=== PATIENT | female | born 1965 | race Caucasian/White ===

== ENCOUNTER 2017-05-24 07:04 | Day surgery (SDC) | payer OTHER, BC ==
[~2017-05-24 07:04] MED LIST: Lactated Ringers 1,000 ML IV SCH; Lidocaine 1%/Sod Bicarbonate in NS 8.4% 1 ML Syringe IV PRN; Sodium Chloride 0.9% 10 ML Syringe FLUSH PRN
[2017-05-24] MEDS ORDERED: Propofol 200 MG/20 ML SDV ONE (07:15)
[2017-05-24] MEDS ORDERED: fentaNYL 100 MCG/2 ML SDV ONE (07:15)
[2017-05-24] MEDS ORDERED: Lidocaine 1% 4 ML ONE (07:15)
--- NOTE | 2017-05-24 07:23 | PCM.PREANE ---
Preanesthetic Assessment - Anesthesia/Transfusion/Family Hx Anesthesia History: Prior Anesthesia Reaction Type of Anesthesia Reaction: Excessive Nausea/Vomiting Family History of Anesthesia Reaction: No Transfusion History: No Prior Transfusion(s) Intubation History: Unknown - Review of Systems General: No Symptoms Pulmonary: No Symptoms (quit smoking in 1988/ history of asthma) Cardiovascular: No Symptoms (History of HTN), Dyspnea on Exertion Gastrointestinal: No Symptoms (GERD) Neurological: No Symptoms (History of lymphedema of left leg) Other: Reports: Easy Bruising, Diabetes (am blood sugar at 07:89=796), Depression, Anxiety - Physical Assessment NPO Status Date: 05/23/17 NPO Status Time: 23:00 Pulse: 115 O2 Sat by Pulse Oximetry: 94 Respiratory Rate: 16 Blood Pressure: 135/99 Temperature: 36.1 C Height: 1.57 m Weight: 111 kg ASA Class: 2 Mental Status: Alert & Oriented x3 Airway Class: Mallampati = 2 Dentition: Reports: Normal Dentition, Caries Thyro-Mental Finger Breadths: 3 Mouth Opening Finger Breadths: 3 Lungs: Clear to Auscultation, Normal Respiratory Effort Cardiovascular: Regular Rate, Regular Rhythm, No Murmurs - Allergies Allergies/Adverse Reactions: Allergies Allergy/AdvReac Type Severity Reaction Status Date / Time codeine Allergy Vomiting Verified 05/23/17 12:31 - Anesthesia Plan Pre-Op Medication Ordered: None - Acknowledgements Anesthesia Type Planned: MAC Pt an Appropriate Candidate for the Planned Anesthesia: Yes Alternatives and Risks of Anesthesia Discussed w Pt/Guardian: Yes Pt/Guardian Understands and Agrees with Anesthesia Plan: Yes PreAnesthesia Questionnaire HEENT History: Reports: Impaired Vision Cardiovascular History: Reports: High Cholesterol, Hypertension Respiratory History: Reports: Asthma, Other (See Below) Other Respiratory History: cough Gastrointestinal History: Reports: None Genitourinary History: Reports: Urinary Incontinence, Other (See Below) Other Genitourinary History: microcytosis 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 Musculoskeletal History: Reports: Other (See Below) Other Musculoskeletal History: foot pain Neurological History: Reports: None Psychiatric History: Reports: Anxiety, Depression Endocrine/Metabolic History: Reports: Obesity/BMI 30+, Vitamin D Deficiency Hematologic History: Reports: Anemia, Iron Deficiency Immunologic History: Reports: None Oncologic (Cancer) History: Reports: None Dermatologic History: Reports: Other (See Below) Other Dermatologic History: left leg lymphadema - Past Surgical History Head Surgeries/Procedures: Reports: None HEENT Surgical History: Reports: Other (See Below) Other HEENT Surgeries/Procedures: throat polyp removal Cardiovascular Surgical History: Reports: None GI Surgical History: Reports: Cholecystectomy, Hernia Repair/Other Female Surgical History: Reports: Section Male Surgical History: Reports: None Neurological Surgical History: Reports: None Musculoskeletal Surgical History: Reports: Other (See Below) Other Musculoskeletal Surgeries/Procedures:: Left ACL and MCL repair Oncologic Surgical History: Reports: None - SUBSTANCE USE Smoking Status *Q: Former Smoker Recreational Drug Use History: No - HOME MEDS Home Medications: Home Meds Albuterol Sulfate [Proair Hfa] 1 - 2 puff INH Q4HR PRN 05/23/17 [History] Albuterol [IJD: Albuterol] 1 dose INH QID PRN 05/23/17 [History] Ascorbate Calcium [Vitamin C] 500 mg PO DAILY 05/23/17 [History] Calcium Carb/Magnesium Hydrox [Rolaids Chewable Tablet] 1 tab PO ASDIRECTED PRN 05/23/17 [History] Calcium Lactate 300 mg PO DAILY 05/23/17 [History] Cholecalciferol (Vitamin D3) [Vitamin D3] 5,000 units PO DAILY 05/23/17 [History ] Ferrous Sulfate [Iron] 325 mg PO DAILY 05/23/17 [History] Fluticasone/Salmeterol [Advair 250-50 Diskus] 1 puff INH BID 05/23/17 [History] Lactobacillus Combination No.4 [Probiotic] 1 cap PO DAILY 05/23/17 [History] Lisinopril [Lisinopril] 10 mg PO DAILY 05/23/17 [History] Magnesium Calcium Niacin 1 tab PO DAILY 05/23/17 [History] Naproxen Sodium [Aleve] 440 mg PO BID PRN 05/23/17 [History] Omeprazole [Omeprazole] 20 mg PO DAILY 05/23/17 [History] Venlafaxine HCl [Venlafaxine ER] 37.5 mg PO DAILY 05/23/17 [History] atorvaSTATin [Lipitor] 10 mg PO DAILY 05/23/17 [History] metFORMIN HCl [Metformin HCl ER] 500 mg PO DAILY 05/23/17 [History] - CURRENT (IN HOUSE) MEDS Current Meds: Current Medications Lactated Ringer's (Ringers, Lactated) 1,000 mls @ 125 mls/hr IV ASDIRECTED CHAZ Stop: 05/24/17 18:00 Lidocaine/Sodium Bicarbonate (Buffered Lidocaine 1% In Ns 8.4%) 0.25 ml IV ONETIME PRN PRN Reason: Prior to IV Start Stop: 05/24/17 18:00 Sodium Chloride (Saline Flush) 10 ml FLUSH ASDIRECTED PRN PRN Reason: Keep Vein Open Stop: 05/24/17 18:00 Discontinued Medications Fentanyl (Sublimaze) Confirm Administered Dose 100 mcg .ROUTE .STK-MED ONE Stop: 05/24/17 07:16 Lidocaine HCl (Xylocaine-Mpf 1%) Confirm Administered Dose 4 mls @ as directed .ROUTE .STK-MED ONE Stop: 05/24/17 07:16 Propofol (Diprivan 20 Ml) Confirm Administered Dose 400 mg .ROUTE .STK-MED ONE Stop: 05/24/17 07:16
--- NOTE | 2017-05-24 07:56 | PCM.HP ---
H&P History of Present Illness - General Date of Service: 05/24/17 Admit Problem/Dx: Colon cancer screening Source of Information: Patient History Limitations: Reports: No Limitations - History of Present Illness Initial Comments - Free Text/Narative: 52 year old female here for colonoscopy. There is no family history of colon cancer. She has had no blood in her stool, no melena or hematochezia. No recent or radical changes in bowel habits. She has never had a colonoscopy. Improves with: Reports: None Worsens with: Reports: None Associated Symptoms: Reports: No Other Symptoms - Related Data Allergies/Adverse Reactions: Allergies Allergy/AdvReac Type Severity Reaction Status Date / Time codeine Allergy Vomiting Verified 05/23/17 12:31 Home Medications: Home Meds Albuterol Sulfate [Proair Hfa] 1 - 2 puff INH Q4HR PRN 05/23/17 [History] Albuterol [IJD: Albuterol] 1 dose INH QID PRN 05/23/17 [History] Ascorbate Calcium [Vitamin C] 500 mg PO DAILY 05/23/17 [History] Calcium Carb/Magnesium Hydrox [Rolaids Chewable Tablet] 1 tab PO ASDIRECTED PRN 05/23/17 [History] Calcium Lactate 300 mg PO DAILY 05/23/17 [History] Cholecalciferol (Vitamin D3) [Vitamin D3] 5,000 units PO DAILY 05/23/17 [History ] Ferrous Sulfate [Iron] 325 mg PO DAILY 05/23/17 [History] Fluticasone/Salmeterol [Advair 250-50 Diskus] 1 puff INH BID 05/23/17 [History] Lactobacillus Combination No.4 [Probiotic] 1 cap PO DAILY 05/23/17 [History] Lisinopril [Lisinopril] 10 mg PO DAILY 05/23/17 [History] Magnesium Calcium Niacin 1 tab PO DAILY 05/23/17 [History] Naproxen Sodium [Aleve] 440 mg PO BID PRN 05/23/17 [History] Omeprazole [Omeprazole] 20 mg PO DAILY 05/23/17 [History] Venlafaxine HCl [Venlafaxine ER] 37.5 mg PO DAILY 05/23/17 [History] atorvaSTATin [Lipitor] 10 mg PO DAILY 05/23/17 [History] metFORMIN HCl [Metformin HCl ER] 500 mg PO DAILY 05/23/17 [History] Past Medical History HEENT History: Reports: Impaired Vision Cardiovascular History: Reports: High Cholesterol, Hypertension Respiratory History: Reports: Asthma, Other (See Below) Other Respiratory History: cough Gastrointestinal History: Reports: None Genitourinary History: Reports: Urinary Incontinence, Other (See Below) Other Genitourinary History: microcytosis 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 Musculoskeletal History: Reports: Other (See Below) Other Musculoskeletal History: foot pain Neurological History: Reports: None Psychiatric History: Reports: Anxiety, Depression Endocrine/Metabolic History: Reports: Obesity/BMI 30+, Vitamin D Deficiency Hematologic History: Reports: Anemia, Iron Deficiency Immunologic History: Reports: None Oncologic (Cancer) History: Reports: None Dermatologic History: Reports: Other (See Below) Other Dermatologic History: left leg lymphadema - Past Surgical History Head Surgeries/Procedures: Reports: None HEENT Surgical History: Reports: Other (See Below) Other HEENT Surgeries/Procedures: throat polyp removal Cardiovascular Surgical History: Reports: None GI Surgical History: Reports: Cholecystectomy, Hernia Repair/Other Female Surgical History: Reports: Section Male Surgical History: Reports: None Neurological Surgical History: Reports: None Musculoskeletal Surgical History: Reports: Other (See Below) Other Musculoskeletal Surgeries/Procedures:: Left ACL and MCL repair Oncologic Surgical History: Reports: None Social & Family History - Tobacco Use Smoking Status *Q: Former Smoker Used Tobacco, but Quit: Yes Month Tobacco Last Used: 1988 - Caffeine Use Caffeine Use: Reports: Coffee - Recreational Drug Use Recreational Drug Use: No Drug Use in Last 12 Months: No H&P Review of Systems - Review of Systems: Review Of Systems: See Below General: Reports: No Symptoms HEENT: Reports: No Symptoms Cardiovascular: Reports: No Symptoms Gastrointestinal: Reports: No Symptoms Skin: Reports: No Symptoms Exam - Exam Exam: See Below - Vital Signs Vital Signs: Last Vital Signs Temp 36.1 C 05/24/17 07:49 Pulse 115 H 05/24/17 07:49 Resp 16 05/24/17 07:49 BP 135/99 H 05/24/17 07:49 Pulse Ox 94 L 05/24/17 07:49 Weight: 111 kg - Exam General: Alert, Oriented Lungs: Clear to Auscultation, Normal Respiratory Effort Cardiovascular: Regular Rate, Regular Rhythm GI/Abdominal Exam: Normal Bowel Sounds - Patient Data Lab Results Last 24 hrs: Laboratory Results - last 24 hr 05/24/17 Range/Units 07:30 POC Glucose 118 H (70-105) mg/dL *Q Meaningful Use (ADM) - VTE *Q VTE Criteria *Q: - Stroke *Q Stroke Criteria *Q: - AMI *Q AMI Criteria *Q: - Problem List (1) Colon cancer screening SNOMED Code(s): 277224791 ICD Code: Z12.11 - ENCOUNTER FOR SCREENING FOR MALIGNANT NEOPLASM OF COLON Status: Acute Current Visit: Yes Problem List Initiated/Reviewed/Updated: Yes Orders Last 24hrs: Active Orders 24 hr Category Date Time Status Blood Glucose Check, Bedside [RC] ONETIME Care 05/24/17 00:01 Active Peripheral IV Care [RC] . DIRECTED Care 05/24/17 00:01 Active Verify Patient Consent Obtain [RC] ASDIRECTED Care 05/24/17 00:01 Active Lactated Ringers [Ringers, Lactated] 1,000 ml Med 05/24/17 00:01 Active IV ASDIRECTED Lidocaine 1%/Sod Bicarbonate [Buffered Lidocaine 1% in Med 05/24/17 00:01 Active NS 8.4%] 0.25 ml IV ONETIME PRN Sodium Chloride 0.9% [Saline Flush] Med 05/24/17 00:01 Active 10 ml FLUSH ASDIRECTED PRN Medication Administration Instruction [OM.PC] Routine Oth 05/24/17 00:01 Ordered Peripheral IV Insertion Adult [OM.PC] Routine Oth 05/24/17 00:01 Ordered Medication Orders Lactated Ringer's (Ringers, Lactated) 1,000 mls @ 125 mls/hr IV ASDIRECTED CHAZ Stop: 05/24/17 18:00 Lidocaine/Sodium Bicarbonate (Buffered Lidocaine 1% In Ns 8.4%) 0.25 ml IV ONETIME PRN PRN Reason: Prior to IV Start Stop: 05/24/17 18:00 Sodium Chloride (Saline Flush) 10 ml FLUSH ASDIRECTED PRN PRN Reason: Keep Vein Open Stop: 05/24/17 18:00 Assessment/Plan Comment:: I discussed the benefits and risks of the procedure, risks including bleeding or perforation which are rare. We will proceed with colonoscopy.
--- NOTE | 2017-05-24 08:26 | PCM48HPAN ---
Post Anesthesia Note - EVALUATION WITHIN 48HRS OF ANESTHETIC Vital Signs in Normal Range: Yes Patient Participated in Evaluation: Yes Respiratory Function Stable: Yes Airway Patent: Yes Cardiovascular Function Stable: Yes Hydration Status Stable: Yes Pain Control Satisfactory: Yes Nausea and Vomiting Control Satisfactory: Yes Mental Status Recovered: Yes
--- NOTE | 2017-05-24 08:27 | PCM.OPNOTE ---
- General Post-Op/Procedure Note Date of Surgery/Procedure: 05/24/17 Operative Procedure(s): Colonoscopy with cold forceps biopsy Findings: 2 mm sigmoid polyp Pre Op Diagnosis: Colon cancer screening Post-Op Diagnosis: Sigmoid polyp Anesthesia Technique: MAC Primary Surgeon: Erik Solorio Anesthesia Provider: Kristen Romeo EBL in mLs: 5 Complications: None Condition: Good Free Text/Narrative:: After patient gave verbal and written consent she was placed on blood pressure and pulse ox monitoring. She was given iv sedation which she tolerated well. The olympus colonoscope was inserted per rectum and advanced to the cecum without difficulty. The ileocecal valve and appendiceal orfice were imaged documenting cecal intubation. The scope was slowly withdrawn and mucosal surfaces carefully examined. The prep was excellent. The views were excellent. A small 2 mm sigmoid polyp was noted and biopsied with cold forceps biopsy. There was hemostasis. The scope was then retroflexed in the rectum and imaged. The scope was then removed. Next colonoscopy based on path results.
== END 2017-05-24 09:05 | disposition home or self-care (01) ==
LOC: JD.SDS 07:04
PROVIDERS: ATTEND Family Medicine
DX: Z12.11 Encounter for screening for malignant neoplasm of colon (principal); K63.5 Polyp of colon; E78.00 Pure hypercholesterolemia, unspecified; I10 Essential (primary) hypertension; J45.909 Unspecified asthma, uncomplicated; F41.9 Anxiety disorder, unspecified; F32.9 Major depressive disorder, single episode, unspecified; E66.9 Obesity, unspecified; E55.9 Vitamin D deficiency, unspecified; Z88.5 Allergy status to narcotic agent; Z79.899 Other long term (current) drug therapy; Z79.51 Long term (current) use of inhaled steroids; Z68.30 Body mass index [BMI] 30.0-30.9, adult; Z90.49 Acquired absence of other specified parts of digestive tract; Z87.891 Personal history of nicotine dependence; Z79.84 Long term (current) use of oral hypoglycemic drugs
CPT/HCPCS: 45380; 82962; J3010; J7120; 00812; J2001; J2704